=== PATIENT | female | born 1970 | race Two or more races ===

== ENCOUNTER 2024-07-23 09:27 | Emergency (ER) | payer OTHER ==
[~2024-07-23] VITALS: Ht 152.4 cm; Wt 86.0 kg
[~2024-07-23 09:27] MED LIST: denies
[2024-07-23 10:29] VITALS: BP 119/71; PULSE 89; RESP 16; TEMP 98.6; O2SAT 100
[2024-07-23] MEDS: KETOROLAC TROMETH 60MG/2ML VIAL IM ONE (11:07)
[2024-07-23] MEDS ORDERED: METH-1182 PO (11:39)
[2024-07-23] MEDS ORDERED: IBUP-1456 PO (11:39)
== END 2024-07-23 11:47 | disposition home or self-care (01) ==
LOC: EDBD 09:27 → ER 09:27
DX: S16.1XXA Strain of muscle, fascia and tendon at neck level, initial encounter (principal); Z88.0 Allergy status to penicillin; Z79.899 Other long term (current) drug therapy; V49.88XA Car occupant (driver) (passenger) injured in other specified transport accidents, initial encounter; Y93.I9 Activity, other involving external motion; Y92.488 Other paved roadways as the place of occurrence of the external cause; Y99.8 Other external cause status
CPT/HCPCS: 72040; 96372; 99283; J1885